=== PATIENT | female | born 1960 | race Caucasian/White ===

== ENCOUNTER 2025-05-17 08:30 | Outpatient (CLI) | payer OTHER | END 2025-05-17 08:31 | disposition home or self-care (01) | LOC: BICULT 08:30 | PROVIDERS: ATTEND Family Medicine | DX: E04.1 Nontoxic single thyroid nodule (principal) | CPT/HCPCS: 76536 ==

== ENCOUNTER 2025-06-01 08:34 | Outpatient (CLI) | payer OTHER | END 2025-06-01 08:35 | disposition home or self-care (01) | LOC: BICMAMMO 08:34 | PROVIDERS: ATTEND Family Medicine | DX: Z12.31 Encounter for screening mammogram for malignant neoplasm of breast (principal); M85.89 Other specified disorders of bone density and structure, multiple sites; Z91.89 Other specified personal risk factors, not elsewhere classified | CPT/HCPCS: 77063; 77067; 77080 ==